=== PATIENT | female | born 1950 | race Caucasian/White ===

== ENCOUNTER 2017-11-12 21:11 | Emergency (ER) | payer BC ==
[~2017-11-12] VITALS: Ht 167.6 cm; Wt 65.8 kg
[~2017-11-12 21:11] MED LIST: CALMAGZIN PO; CIPR250 PO; ESTR2 PO; FISH1000 PO; FLUSAL2505 IH; FLUSAL2505 INH; IBUP200 PO; LEVSOD88 PO; LISI20 PO; LORA10ER PO; MONT10T PO; OLME20 PO; SIMV10 PO; SIMV20 PO; TRAM50 PO; VITAMIN D 3 PO; ZOCOR 20 MG PO
[2017-11-12] MEDS ORDERED: BREO ELLIPTA 11 EACH INH (21:27)
[2017-11-12] MEDS ORDERED: LOSARTAN POTAS100 MG PO (21:27)
== END 2017-11-13 00:43 | disposition home or self-care (01) ==
LOC: ER 21:11
DX: S51.811A Laceration without foreign body of right forearm, initial encounter (principal); T14.8XXA Other injury of unspecified body region, initial encounter; Z23 Encounter for immunization; E03.9 Hypothyroidism, unspecified; J45.909 Unspecified asthma, uncomplicated; E78.5 Hyperlipidemia, unspecified; Z87.891 Personal history of nicotine dependence; Z88.8 Allergy status to other drugs, medicaments and biological substances; Z88.6 Allergy status to analgesic agent; Z88.5 Allergy status to narcotic agent; Z79.899 Other long term (current) drug therapy; W01.0XXA Fall on same level from slipping, tripping and stumbling without subsequent striking against object, initial encounter
CPT/HCPCS: 12001; 73080; 90471; 90714; 99283

== ENCOUNTER 2018-12-31 12:46 | Day surgery (SDC) | payer MEDICARE, OTHER ==
[~2018-12-31] VITALS: Ht 167.6 cm; Wt 70.5 kg
[~2018-12-31 12:46] MED LIST changes: +BREO ELLIPTA 11 EACH INH; +LOSARTAN POTAS100 MG PO; +LOSARTAN-HCTZ1 EAC2; +TRAM50
--- NOTE | 2018-12-31 14:44 | NUR ---
12/31/18 1444 [facility] PT HAD 4CC NS INJECTED PRIOR TO 1CC TATTOO IN SIGMOID COLON
== END 2018-12-31 15:14 | disposition home or self-care (01) ==
LOC: ORSCSDS 12:46
PROVIDERS: Student in an Organized Health Care Education/Training Program
PROC: 0DBN8ZX Excision of Sigmoid Colon, Via Natural or Artificial Opening Endoscopic, Diagnostic (ICD-10-PCS; principal; 2018-12-31 14:15)
DX: Z12.11 Encounter for screening for malignant neoplasm of colon (principal); D12.5 Benign neoplasm of sigmoid colon; K57.30 Diverticulosis of large intestine without perforation or abscess without bleeding; K62.89 Other specified diseases of anus and rectum; E03.9 Hypothyroidism, unspecified; I10 Essential (primary) hypertension; K64.8 Other hemorrhoids; Z79.899 Other long term (current) drug therapy
CPT/HCPCS: 88305; J2704; J7120

== ENCOUNTER 2020-10-26 08:17 | Day surgery (SDC) | payer MEDICARE, BC ==
[~2020-10-26] VITALS: Ht 170.2 cm; Wt 72.8 kg
[~2020-10-26 08:17] MED LIST changes: +ACET80 PO; -LOSARTAN-HCTZ1 EAC2; +LOSARTAN-HCTZ1 EAC6 PO; -TRAM50
--- NOTE | 2020-10-26 09:18 | NUR ---
[facility] in [facility] warming gown applied. Surgical site prepped with 2% Chlorhexidine cloth wipe. Lungs clear T/O to Auscultation. History, Chart, Medications and Allergies reviewed before start of procedure.Patient confirms NPO status and agrees with scheduled surgery. Pre-Op teaching done. Pt verbalizes understanding. Patient States Post-Procedure ride home has been arranged. Patient reports completing Chlorhexadine shower X2 prior to admission to hospital.
--- NOTE | 2020-10-26 15:25 | NUR ---
THERAPY: PT IN ROOM TO WORK WITH PATIENT. PT STILL UNABLE TO FEEL LEFT FOOT. THERAPY WILL DEFER TILL TOMORROW TO WORK WITH PATIENT BUT NURSING WILL GET PT OOB WHEN SENSATION RETURNS.
--- NOTE | 2020-10-26 18:23 | NUR ---
PT HAS BEEN STABLE POST OP. PT STILL HAS RISIDUAL NUMBNESS IN LEFT LEG, BUT GOOD MOVEMENT. DENIES PAIN. PT UP TO COMMODE AND CHAIR WITH 1 ASSIST AND WALKER. VOIDING WELL. SL FLUIDS. PT EATING AND DRINKING WELL. AQUACEL TO LEFT KNEE CDI. PAS, TEDS AND POLAR PACK IN PLACE. PT CHANGED INTO OWN CLOTHES FOR COMFORT. PT USES CALL LIGHT APPROPRIATELY NEEDED.
--- NOTE | 2020-10-27 02:00 | NUR ---
SHIFT SUMMARY: POD 1 LEFT TOTAL KNEE REPLACEMENT PATIENT IS ALERT AND ORIENTED X4 WHILE AWAKE. SHE HAS BEEN ASLEEP MAJORITY OF THE SHIFT. VS ARE WNL AND IS ON RA. PAIN IS CONTROLLED WITH 2 MARCO AND TYLENOL PO. SHE HAS FULL SENSATION IN ALL EXTREMITIES. PATIENT TOLERATED WALKING IN THE HALLWAY AND INTO THE BATHROOM BEFORE BED. SHE USES A FWW AND GAIT BELT. AQUACEL IS C/D/I WITH ICE APPLIED TO THAT KNEE. CALLS APPROPRIATELY. CALL LIGHT WITHIN REACH. PATIENT IS CURRENTLY LAYING ASLEEP IN CHAIR SINCE IT IS MORE COMFORTABLE FOR HER. THE PLAN IS TO CONTINUE PAIN MANAGEMENT AND TO WORK WITH PT LATER TODAY.
[2020-10-27 04:30] LABS: BASOPHILS ABSOLUTE AUTO 0.02 K/mm3 (0.00-0.23); BASOPHILS PERCENT AUTO 0 % (0-2); EOSINOPHILS ABSOLUTE AUTO 0.01 K/mm3 (0.00-0.68); EOSINOPHILS PERCENT AUTO 0 % (0-6); Hematocrit 35.2 % (33.0-51.0); Hemoglobin 11.7 g/dL (11.5-16.0); IMMATURE GRAN ABSOLUTE AUTO 0.06 K/mm3 (0.00-0.10); IMMATURE GRAN PERCENT AUTO 1 % (0-1); LYMPHOCYTES ABSOLUTE AUTO 0.91 K/mm3 (0.84-5.20); LYMPHOCYTES PERCENT AUTO 7 % (21-46); MONOCYTES ABSOLUTE AUTO 0.79 K/mm3 (0.16-1.47); MONOCYTES PERCENT AUTO 6 % (4-13); Mean Corpuscular HGB 32.6 pg (26.0-34.0); Mean Corpuscular HGB Conc 33.2 g/dL (31.5-36.5); Mean Corpuscular Volume 98 fL (80-100); Mean Platelet Volume 9.7 fL (9.1-12.4); NEUTROPHILS ABSOLUTE AUTO 10.46 K/mm3 (1.96-9.15); NEUTROPHILS PERCENT AUTO 85 % (41-73); Platelet Count 269 K/mm3 (150-400); RDW Coefficient Variation 13.2 % (11.7-14.2); RDW Standard Deviation 47.2 fL (35.1-46.3); Red Blood Cell Count 3.59 M/mm3 (3.80-5.20); White Blood Cell Count 12.25 K/mm3 (4.00-11.30)
[2020-10-27 04:49] LABS: Bun/Creatinine Ratio 14.4 (12.0-20.0); Calcium, Blood 8.1 mg/dL (8.5-10.1); Creatinine, Blood 1.04 mg/dL (0.40-1.00); Magnesium, Blood 1.9 mg/dL (1.6-2.4); Potassium, Blood 4.4 mmol/L (3.5-5.5)
[2020-10-27] MEDS ORDERED: ROXICODONE5 MG PO (08:43)
[2020-10-27] MEDS ORDERED: ACET500 PO (08:51)
[2020-10-27] MEDS ORDERED: ASPI81CH PO (08:52)
--- NOTE | 2020-10-27 10:32 | NUR ---
DISCHARGE SUMMARY PT POD #1 FOR A LEFT TOTAL KNEE. PT C/O /10 PAIN THAT IS RELIEVED WITH MEDICATION. WORKED WITH PHYSICAL THERAPY AND WAS CLEARED TO GO HOME. DISCHARGE EDUCATION PROVIDED BY LAYLA KELLER. PT VERBALIZED UNDERSTANDING. IV DC'D WNL. PT DISCHARGED HOME WITH .
== END 2020-10-27 10:54 | disposition home or self-care (01) ==
LOC: ORSCMMR 08:17 → ORD 11:00 → SURS 12:21 → ORSCMMR 10-27 10:54 → SURS 10-27 10:54
PROVIDERS: Orthopaedic Surgery
PROC: 0SRD0JA Replacement of Left Knee Joint with Synthetic Substitute, Uncemented, Open Approach (ICD-10-PCS; principal; 2020-10-26 11:00)
PROC: 0QPH04Z Removal of Internal Fixation Device from Left Tibia, Open Approach (ICD-10-PCS; principal; 2020-10-26 11:00)
DX: M17.12 Unilateral primary osteoarthritis, left knee (principal); I10 Essential (primary) hypertension; J44.9 Chronic obstructive pulmonary disease, unspecified; N18.9 Chronic kidney disease, unspecified; E03.9 Hypothyroidism, unspecified; Z87.891 Personal history of nicotine dependence; Z79.899 Other long term (current) drug therapy
CPT/HCPCS: 36415; 73560-LT; 80048; 83735; 85025; 94640; 94760; 97110; 97116; 97161; A9270; A9270-GY; C1776; J0171; J0690; J0735; J1100; J1885; J2250; J2405; J2704; J2795; J3010; J7120